=== PATIENT | female | born 1965 | race Caucasian/White ===

== ENCOUNTER 2017-09-22 15:37 | Observation (INO) | payer BC ==
[~2017-09-22] VITALS: Ht 162.6 cm; Wt 75.0 kg
[2017-09-22 16:00] VITALS: BP 121/59; PULSE 92; RESP 20; TEMP 97.9; O2SAT 98
[2017-09-22] MEDS ORDERED: ASPIRIN 325 MG TAB PO ONE (16:00)
[2017-09-22] MEDS ORDERED: NITROGLYCERIN 0.4 MG SL 25 TABS/BTL SL ONE (16:00)
[2017-09-22 16:03] VITALS: O2SAT 98
[2017-09-22] MEDS ORDERED: MORPHINE SULFATE 2 MG/ML SYRINGE IV PUSH ONE (16:15)
[2017-09-22] MEDS ORDERED: ONDANSETRON HCL 4 MG/2 ML VIAL IV PUSH ONE (16:15)
[2017-09-22 16:33] LABS: AUTOMATED NEUTROPHIL # 3.8 TH/MM3 (1.8-7.7); BASOPHIL # 0.1 TH/MM3 (0-0.2); BASOPHIL % 0.9 % (0.0-2.0); EOSINOPHIL # 0.2 TH/MM3 (0-0.4); EOSINOPHIL % 2.5 % (0.0-4.0); HEMATOCRIT 39.5 % (35.0-46.0); LYMPH % 31.3 % (9.0-44.0); LYMPHOCYTE # 2.1 TH/MM3 (1.0-4.8); MEAN CELL VOLUME 82.5 FL (80.0-100.0); MEAN CORPUSCULAR HEMOGLOBIN 27.1 PG (27.0-34.0); MEAN CORPUSCULAR HGB CONC 32.8 % (32.0-36.0); MEAN PLATELET VOLUME 7.8 FL (7.0-11.0); MONO % 8.8 % (0.0-8.0); MONOCYTE # 0.6 TH/MM3 (0-0.9); NEUT % 56.5 % (16.0-70.0); PLATELET COUNT 318 TH/MM3 (150-450); RED BLOOD COUNT 4.79 MIL/MM3 (4.00-5.30); RED CELL DISTRIBUTION WIDTH 17.1 % (11.6-17.2); WHITE BLOOD COUNT 6.8 TH/MM3 (4.0-11.0)
[2017-09-22 16:52] LABS: D-DIMER 0.2 MG/L FEU (0.00-0.50)
[2017-09-22 16:56] LABS: ALBUMIN 3.4 GM/DL (3.4-5.0); ALT (GPT) 19 U/L (10-53); AST (GOT) 16 U/L (15-37); BICARBONATE 24.7 MEQ/L (21.0-32.0); BLOOD UREA NITROGEN 15 MG/DL (7-18); CALCIUM 8.5 MG/DL (8.5-10.1); CHLORIDE 112 MEQ/L (98-107); GLOMERULAR FILTRATION RATE 76 ML/MIN (>89); GLUCOSE,RANDOM 100 MG/DL (74-106); SODIUM (NA) 143 MEQ/L (136-145)
--- NOTE | 2017-09-22 16:56 | RADRPT ---
EXAM DATE/TIME: 09/22/2017 16:11 [place] COMPARISON: No previous studies available for comparison. INDICATIONS : Chest pain on and off for several weeks. MEDICAL HISTORY : None. SURGICAL HISTORY : None. ENCOUNTER: Initial ACUITY: 3 weeks PAIN SCORE: 8/10 LOCATION: Bilateral chest FINDINGS: A single view of the chest demonstrates the lungs to be symmetrically aerated without evidence of mas s, infiltrate or effusion. The cardiomediastinal contours are unremarkable. Osseous structures are intact. CONCLUSION: The lungs are clear. Wilfredo York MD on September 22, 2017 at 16:54 Board Certified Radiologist. This report was verified electronically.
[2017-09-22 17:00] LABS: ALKALINE PHOSPHATASE 81 U/L (45-117); TOTAL BILIRUBIN ADULT 0.3 MG/DL (0.2-1.0); TOTAL PROTEIN 7.1 GM/DL (6.4-8.2); TROPONIN I LESS THAN 0.02 NG/ML (0.02-0.05)
[2017-09-22 17:20] VITALS: BP 106/57; PULSE 77; RESP 18; O2SAT 97
[2017-09-22 17:42] VITALS: BP 103/53; PULSE 75; RESP 22; O2SAT 97
[2017-09-22] MEDS ORDERED: SODIUM CHLORID 0.9% 500 ML INJ 500 ML IV ONE (18:00)
[2017-09-22 18:48] VITALS: BP 107/65; PULSE 74; RESP 20; O2SAT 97
--- NOTE | 2017-09-22 19:14 | PD ---
HPI Chief Complaint: Chest Pain Time Seen by Provider: 15:53 Travel History International Travel<30 days: No Contact w/Intl Traveler<30days: No Traveled to known affect area: No History of Present Illness HPI 51-year-old female presents to the ED via ambulance for evaluation of significant chest pain that comes and goes into her left chest. Per patient she has had this since today. Per patient she was doing work today and she developed the pain. Per patient she did not want it to calm but she could not get up on her own she was very diaphoretic and anxious. She was not given any medications. Per patient she has no history of heart disease and takes no current medication at time for anxiety. She does have a history of anxiety chronically. She states that she has been out of the medications for some time secondary to having lost her insurance and having no follow-up. She states that the pain is 7 out of 10 and is pressure-like. Sharp. She does tell me that she has a strong family history of heart disease with her aunts as well as her father dying from heart attack at a young age. She denies any history of smoking. History of high blood pressure or diabetes. No cholesterol issues. She does not really have a primary care doctor and does not really follow-up for this. She relates that this is more likely anxiety but she also tells me that she has been having chest pain whenever she exerts herself and has noted that more often now than before. Pain is sharp but states on the left upper side. PFSH Past Medical History Anemia: Yes ?: Not Past Surgical History Section: Yes Cholecystectomy: Yes Social History Alcohol Use: Yes (OCASSIONAL) Tobacco Use: No Substance Use: Yes (MARIJUANA) Allergies-Medications (Allergen,Severity, Reaction): Coded Allergies: No Known Allergies (Unverified , 09/22/17) Reported Meds & Prescriptions Reported Meds & Active Scripts Active No Active Prescriptions or Reported Medications Review of Systems Except as stated in HPI: all other systems reviewed are Neg Physical Exam Narrative GENERAL: SKIN: Warm and dry. HEAD: Atraumatic. Normocephalic. EYES: Pupils equal and round. No scleral icterus. No injection or drainage. ENT: No nasal bleeding or discharge. Mucous membranes pink and moist. Tongue is midline. No uvula deviation. NECK: Trachea midline. No JVD. CARDIOVASCULAR: Regular rate and rhythm. No murmurs, S3, S4. RESPIRATORY: No accessory muscle use. Clear to auscultation. Breath sounds equal bilaterally. GASTROINTESTINAL: Abdomen soft, non-tender, nondistended. Hepatic and splenic margins not palpable. MUSCULOSKELETAL: Extremities without clubbing, cyanosis, or edema. No obvious deformities. Full range of motion of the upper and lower extremities bilaterally. 2+ pulses bilaterally. NEUROLOGICAL: Awake and alert. No obvious cranial nerve deficits. Motor grossly within normal limits. Five out of 5 muscle strength in the arms and legs. Normal speech. PSYCHIATRIC: Appropriate mood and affect; insight and judgment normal. Data Data Last Documented VS Vital Signs Date Time Temp Pulse Resp B/P (MAP) Pulse Ox O2 Delivery O2 Flow Rate FiO2 09/22/17 18:48 74 20 107/65 (79) 97 Room Air 09/22/17 16:03 2.00 09/22/17 16:00 97.9 Orders Orders Electrocardiogram (09/22/17 15:52) Ckmb (Isoenzyme) Profile (09/22/17 15:52) Complete Blood Count With Diff (09/22/17 15:52) Comprehensive Metabolic Panel (09/22/17 15:52) D-Dimer (09/22/17 15:52) Magnesium (Mg) (09/22/17 15:52) Prothrombin Time / Inr (Pt) (09/22/17 15:52) Act Partial Throm Time (Ptt) (09/22/17 15:52) Troponin I (09/22/17 15:52) Lipase (09/22/17 15:52) Chest, Single Ap (09/22/17 15:52) Ecg Monitoring (09/22/17 15:52) Bilateral Bp Monitoring (09/22/17 15:52) Iv Access Insert/Monitor (09/22/17 15:52) Oximetry (09/22/17 15:52) Aspirin (Aspirin) (09/22/17 16:00) Nitroglycerin Sl (Nitrostat Sl) (09/22/17 16:00) Morphine Inj (Morphine Inj) (09/22/17 16:15) Ondansetron Inj (Zofran Inj) (09/22/17 16:15) CKMB (09/22/17 16:10) CKMB% (09/22/17 16:10) Sodium Chlorid 0.9% 500 Ml Inj (Ns 500 M (09/22/17 18:00) Admit Order (Ed Use Only) (09/22/17 19:06) Activity Bed Rest With Brp (09/22/17 19:08) Vital Signs (Adult) Q4H (09/22/17 19:08) Cardiac Rhythm .As Directed (09/22/17 19:) Notify Dr: Other .PRN (09/22/17:08) Notify Dr. Parameters (09/22/17 19:08) Resp Oxygen Nasal Cannula (09/22/17 ) Diet Npo (09/23/17 Breakfast) Ckmb (Isoenzyme) Profile (09/22/17 19:10) Ckmb (Isoenzyme) Profile (09/22/17 22:10) Troponin I (09/22/17 19:10) Troponin I (09/22/17 22:10) Electrocardiogram (09/22/17 19:10) Electrocardiogram (09/22/17 22:10) ^ Obtain (09/22/17 19:08) Sodium Chloride 0.9% Flush (Ns Flush) (09/22/17 19:15) Sodium Chloride 0.9% Flush (Ns Flush) (09/22/17 21:00) Acetaminophen (Tylenol) (09/22/17 19:15) Ondansetron Inj (Zofran Inj) (09/22/17 19:15) Manager Production / Telemetry SOUMYA.Q8H (09/22/17 19:08) Labs Laboratory Tests Test 09/22/17 16:10 White Blood Count 6.8 TH/MM3 Red Blood Count 4.79 MIL/MM3 Hemoglobin 13.0 GM/DL Hematocrit 39.5 % Mean Corpuscular Volume 82.5 FL Mean Corpuscular Hemoglobin 27.1 PG Mean Corpuscular Hemoglobin Concent 32.8 % Red Cell Distribution Width 17.1 % Platelet Count 318 TH/MM3 Mean Platelet Volume 7.8 FL Neutrophils (%) (Auto) 56.5 % Lymphocytes (%) (Auto) 31.3 % Monocytes (%) (Auto) 8.8 % Eosinophils (%) (Auto) 2.5 % Basophils (%) (Auto) 0.9 % Neutrophils # (Auto) 3.8 TH/MM3 Lymphocytes # (Auto) 2.1 TH/MM3 Monocytes # (Auto) 0.6 TH/MM3 Eosinophils # (Auto) 0.2 TH/MM3 Basophils # (Auto) 0.1 TH/MM3 CBC Comment DIFF FINAL Differential Comment Prothrombin Time 10.0 SEC Prothromb Time International Ratio 1.0 RATIO Activated Partial Thromboplast Time 27.5 SEC D-Dimer Quantitative (PE/DVT) 0.20 MG/L FEU Blood Urea Nitrogen 15 MG/DL Creatinine 0.80 MG/DL Random Glucose 100 MG/DL Total Protein 7.1 GM/DL Albumin 3.4 GM/DL Calcium Level 8.5 MG/DL Magnesium Level 2.0 MG/DL Alkaline Phosphatase 81 U/L Aspartate Amino Transf (AST/SGOT) 16 U/L Alanine Aminotransferase (ALT/SGPT) 19 U/L Total Bilirubin 0.3 MG/DL Sodium Level 143 MEQ/L Potassium Level 3.5 MEQ/L Chloride Level 112 MEQ/L Carbon Dioxide Level 24.7 MEQ/L Anion Gap 6 MEQ/L Estimat Glomerular Filtration Rate 76 ML/MIN Total Creatine Kinase 103 U/L Creatine Kinase MB 1.4 NG/ML Troponin I LESS THAN 0.02 NG/ML Lipase 201 U/L MDM Medical Decision Making Medical Screen Exam Complete: Yes Emergency Medical Condition: Yes Medical Record Reviewed: Yes Interpretation(s) EKG shows sinus rhythm with no sign of acute ischemia or arrhythmia with by me and attending. Troponin and CK-MB negative. Coags and d-dimer within normal limits. CBC & BMP Diagram 09/22/17 16:10 Total Protein 7.1, Albumin 3.4, Calcium Level 8.5, Magnesium Level 2.0, Alkaline Phosphatase 81, Aspartate Amino Transf (AST/SGOT) 16, Alanine Aminotransferase (ALT/SGPT) 19, Total Bilirubin 0.3 Last Impressions Chest X-Ray 09/22/17 [id number] Signed Impressions: Service Date/Time: Friday, September 22, 2017 16:11 - CONCLUSION: The lungs are clear. Wilfredo York MD Differential Diagnosis Chest pain versus atypical chest pain versus anxiety versus panic attack versus ACS Narrative Course 51-year-old female that presents to the ED for evaluation of chest pain. Patient was properly examined and was found to have signs and symptoms consistent with appears to be acute chest pain. Nothing concerning for ACS. She does have a strong family history of heart disease. She tells me that she has been walking and noticing that whenever she walks for long time especially stairs she gets a sharp chest pain similar to what she has but she also tells me that she also has a history of anxiety and feels also similar to her panic attacks. She does have risk factor of age. Labs and imaging were ordered. Labs and imaging were essentially unremarkable. I did offer admission to the patient for chest pain center rule out and she agrees with this. Patient was admitted to the chest pain center by me. She was given aspirin nitroglycerin with improvement of symptoms. Diagnosis Primary Impression: Chest pain in adult Admitting Information Admitting Physician Requests: Observation Scripts No Active Prescriptions or Reported Meds Mal Gagnon Sep 22, 2017 19:14
[2017-09-22] MEDS ORDERED: ONDANSETRON HCL 4 MG/2 ML VIAL IV PUSH PRN (19:15)
[2017-09-22] MEDS ORDERED: ACETAMINOPHEN 500 MG CPLT PO PRN (19:15)
[2017-09-22] MEDS ORDERED: SODIUM CHLORIDE 0.9% FLUSH 10 ML FLUSH IV FLUSH PRN (19:15)
[2017-09-22 20:18] LABS: TROPONIN I LESS THAN 0.02 NG/ML (0.02-0.05)
[2017-09-22 20:23] VITALS: BP 122/74; PULSE 67; RESP 16; TEMP 97.8; O2SAT 98
[2017-09-22] MEDS ORDERED: SODIUM CHLORIDE 0.9% FLUSH 10 ML FLUSH IV FLUSH SCH (21:00)
[2017-09-22 23:14] LABS: TROPONIN I LESS THAN 0.02 NG/ML (0.02-0.05)
[2017-09-23] MEDS ORDERED: MORPHINE SULFATE 4 MG/ML INJ IV ONE (01:00)
[2017-09-23] MEDS ORDERED: TEMAZEPAM 15 MG CAP PO ONE (01:00)
[2017-09-23 01:03] VITALS: BP 102/55; PULSE 64; RESP 14; TEMP 98; O2SAT 96
[2017-09-23 04:48] VITALS: BP 126/66; PULSE 65; RESP 14; TEMP 98.8; O2SAT 96
[2017-09-23 06:29] VITALS: PULSE 62
[2017-09-23 07:43] VITALS: BP 109/72; PULSE 71; RESP 18; TEMP 97.8; O2SAT 96
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
[2017-09-23 09:07] VITALS: O2SAT 96
--- NOTE | 2017-09-23 10:00 | TR ---
Date Performed: 09/23/2017 Time Performed: 08:31:18 DOCTOR: Chau Malcolm DRUG LIST: CLINICAL HISTORY: REASON FOR TEST: REASON FOR ENDING: OBSERVATION: CONCLUSION: SPIKE PROTOCOL CONVERTED TO MANUAL. NO CP. TEST STOPPED SECONDARY TO SOB AND LEG FAT IGUE.Maximum II=618 % Max HR Achieved=87.0% Maximum TO=423/70 Total Exercise Time=6:38 COMMENTS: Minimal ST changes reviewed and are non diagnostic for ischemia. Low probability of s ignificant ischemic heart disease as cause of current presentation.
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
--- NOTE | 2017-09-23 10:03 | EKG ---
Date Performed: 09/22/2017 Time Performed: 22:14:14 PTAGE: 51 years EKG: Sinus rhythm INCOMPLETE RIGHT BUNDLE BRANCH BLOCK NONSPECIFIC T-WAVE ABNORMALITY BORDERLINE ECG No change PREVIOUS TRACING : 09/22/2017 16.44 DOCTOR: Chau Malcolm Interpretating Date/Time 09/23/2017 10:02:47
--- NOTE | 2017-09-23 10:03 | EKG ---
Date Performed: 09/23/2017 Time Performed: 00:05:09 PTAGE: 51 years EKG: Sinus rhythm Essentially normal tracing and unchanged from prior INTERPRETATION BASED ON A DEFAULT AGE OF 42 YEAR S NO PREVIOUS TRACING DOCTOR: Chau Malcolm Interpretating Date/Time 09/23/2017 10:02:00
--- NOTE | 2017-09-23 10:04 | EKG ---
Date Performed: 09/22/2017 Time Performed: 16:44:40 PTAGE: 51 years EKG: Sinus rhythm INCOMPLETE RIGHT BUNDLE BRANCH BLOCK NONSPECIFIC T-WAVE ABNORMALITY BORDERLINE ECG No prior tracing for comparison NO PREVIOUS TRACING DOCTOR: Chau Malcolm Interpretating Date/Time 09/23/2017 10:03:46
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
== END 2017-09-23 13:07 | disposition home or self-care (01) ==
LOC: NEPE 15:37 → NEDA 19:13 → NEPHCDU 19:45
PROVIDERS: ADMIT Internal Medicine Cardiovascular Disease; ATTEND Internal Medicine Cardiovascular Disease
DX: R07.89 Other chest pain (principal); R06.02 Shortness of breath; R11.0 Nausea; R61 Generalized hyperhidrosis; I45.10 Unspecified right bundle-branch block; F12.90 Cannabis use, unspecified, uncomplicated; Z82.49 Family history of ischemic heart disease and other diseases of the circulatory system
CPT/HCPCS: 71045; 80053; 82550; 82552; 83690; 83735; 84484; 85025; 85379; 85610; 85730; 93005; 93017; 96361; 96374; 96375; 96376; 99285; G0378; J2270; J2405; J7040